=== PATIENT | female | born 1995 | race Hispanic/Latino ===

== ENCOUNTER 2023-12-20 13:31 | Emergency (ER) | payer BC ==
[~2023-12-20] VITALS: Ht 170.2 cm; Wt 122.5 kg
[2023-12-20 14:41] LABS: BASOPHILS # (AUTO) 0.02 K/uL (0.00-0.20); BASOPHILS % (AUTO) 0.2 % (0.0-5.0); EOSINOPHILS # (AUTO) 0.01 K/uL (0.00-0.70); EOSINOPHILS % (AUTO) 0.1 % (0.0-8.0); HEMATOCRIT 38.9 % (36-48); IMMATURE GRANULOCYTE ABSOLUTE 0.09 K/uL (0-1); LYMPHOCYTES # (AUTO) 1.4 K/uL (1.0-4.8); MEAN CORPUSCULAR HGB CONC 32.6 g/dL (32.0-36.0); MEAN CORPUSCULAR VOLUME 76.7 fL (79-99); MONOCYTES # (AUTO) 0.5 K/uL (0.1-1.0); NEUTROPHILS # (AUTO) 8.6 K/uL (1.8-7.7); NEUTROPHILS % (AUTO) 80.9 % (40.0-77.0); PLATELET COUNT (AUTO) 298 K/uL (130-400); RED BLOOD CELL COUNT(AUTO) 5.07 MIL/uL (4.00-5.50); RED CELL DISTRIBUTION WIDTH 14.6 % (11.0-15.5); WHITE BLOOD COUNT (AUTO) 10.6 K/uL (4.8-10.8)
[2023-12-20 15:01] VITALS: BP 125/73; PULSE 94; RESP 18; O2SAT 95
[2023-12-20] MEDS: ONDANSETRON 4MG INJ IVP ONE (15:07)
[2023-12-20] MEDS: ONDANSETRON 4MG INJ ONE (15:08)
[2023-12-20] MEDS: 0.9%NACL 1000ML 1,000 ML IV ONE (15:08)
[2023-12-20] MEDS: FAMOTIDINE 20MG VIAL IV ONE (15:11)
[2023-12-20 15:17] LABS: CREATININE 0.9 mg/dL (0.5-1.5)
[2023-12-20 15:18] LABS: POTASSIUM 2.9 mmol/L (3.5-5.1)
[2023-12-20 15:21] LABS: SARS-CoV-2, RNA, NAAT NEGATIVE SARS CoV-2 (NEGATIVE)
[2023-12-20 15:27] LABS: INFLUENZA TYPE A Negative For Type A (NEGATIVE); INFLUENZA TYPE B Negative For Type B (NEGATIVE)
[2023-12-20] MEDS: POTASSIUM BICARB/CIT AC 25 MEQ TABLET.EFF PO ONE (15:34)
[2023-12-20] MEDS: CEFTRIAXONE 1G VIAL IVPB ONE (15:35)
[2023-12-20] MEDS: [UNRECOGNIZED DRUG - OTHER] IV ONE (15:35)
[2023-12-20] MEDS ORDERED: ONDA4TAB10 PO (15:54)
[2023-12-20] MEDS ORDERED: HYOS0.124 SL (15:54)
[2023-12-20] MEDS ORDERED: POTA-81 PO (15:54)
[2023-12-20 16:28] VITALS: TEMP 100.9
[2023-12-20] MEDS: ACETAMINOPHEN 325 MG TAB ONE (16:28)
== END 2023-12-20 16:58 | disposition home or self-care (01) ==
LOC: EDH 13:31
DX: K52.9 Noninfective gastroenteritis and colitis, unspecified (principal); E87.6 Hypokalemia; Z20.822 Contact with and (suspected) exposure to COVID-19; Z88.0 Allergy status to penicillin; Z88.8 Allergy status to other drugs, medicaments and biological substances
CPT/HCPCS: 99284; 96365; 96375; 87635; 80048; 85025; 87804 ×2; 36415; J3490; J7030 ×2; J0696; J2405